=== PATIENT | male | born 1965 | race Caucasian/White ===

== ENCOUNTER 2017-02-19 07:04 | Day surgery (SDC) | payer OTHER ==
[~2017-02-19 07:04] MED LIST: Lactated Ringers 1,000 ML IV SCH; Lidocaine 1%/Sod Bicarbonate in NS 8.4% 1 ML Syringe PRN; Sodium Chloride 0.9% 10 ML Syringe FLUSH PRN
[2017-02-19] MEDS ORDERED: Lidocaine 1% 4 ML ONE (07:11)
[2017-02-19] MEDS ORDERED: Propofol 200 MG/20 ML SDV ONE ×3 (07:11→09:30)
--- NOTE | 2017-02-19 07:54 | PCM.PREANE ---
Preanesthetic Assessment - Anesthesia/Transfusion/Family Hx Anesthesia History: Prior Anesthesia Without Reaction Family History of Anesthesia Reaction: No - Review of Systems General: No Symptoms Pulmonary: No Symptoms Cardiovascular: No Symptoms Gastrointestinal: No Symptoms Neurological: No Symptoms Other: Reports: None - Physical Assessment NPO Status Date: 02/18/17 NPO Status Time: 20:30 O2 Sat by Pulse Oximetry: 94 Respiratory Rate: 17 Vital Signs: Last Vital Signs Temp 35.7 C 02/19/17 07:12 Pulse 60 02/19/17 07:12 Resp 17 02/19/17 07:12 BP 148/90 H 02/19/17 07:12 Pulse Ox 94 L 02/19/17 07:12 Height: 1.68 m Weight: 98.43 kg ASA Class: 2 Mental Status: Alert & Oriented x3 Airway Class: Mallampati = 2 Dentition: Reports: Normal Dentition Thyro-Mental Finger Breadths: 2 Mouth Opening Finger Breadths: 3 ROM/Head Extension: Full Lungs: Clear to Auscultation, Normal Respiratory Effort Cardiovascular: Regular Rate, Regular Rhythm - Lab Values: Laboratory Last Values POC Glucose 131 mg/dL (70-105) H 02/19/17 07:27 - Allergies Allergies/Adverse Reactions: Allergies Allergy/AdvReac Type Severity Reaction Status Date / Time Eggs Allergy Syncope Uncoded 02/19/17 07:40 Potatoes Allergy Syncope Uncoded 02/19/17 07:40 - Acknowledgements Anesthesia Type Planned: MAC Pt an Appropriate Candidate for the Planned Anesthesia: Yes Alternatives and Risks of Anesthesia Discussed w Pt/Guardian: Yes Pt/Guardian Understands and Agrees with Anesthesia Plan: Yes PreAnesthesia Questionnaire HEENT History: Reports: Allergic Rhinitis, Other (See Below) Other HEENT History: pterygium Cardiovascular History: Reports: High Cholesterol, Hypertension Respiratory History: Reports: None Gastrointestinal History: Reports: Other (See Below) Other Gastrointestinal History: Rectal bleeding Genitourinary History: Reports: None Musculoskeletal History: Reports: Back Pain, Chronic (Middle of back. Has been seen at [facility]. No numbness/tingling in extremities.) Other Musculoskeletal History: Carpal tunnel syndrome, rotator cuff syndrome Neurological History: Reports: None Psychiatric History: Reports: Other (See Below) Other Psychiatric History: Nightmares Endocrine/Metabolic History: Reports: Diabetes, Type II, Obesity/BMI 30+ Hematologic History: Reports: None Immunologic History: Reports: None Oncologic (Cancer) History: Reports: None Dermatologic History: Reports: None - Infectious Disease History Infectious Disease History: Reports: None - Past Surgical History Head Surgeries/Procedures: Reports: None HEENT Surgical History: Reports: None Cardiovascular Surgical History: Reports: None Respiratory Surgical History: Reports: None GI Surgical History: Reports: Colonoscopy Male Surgical History: Reports: None Endocrine Surgical History: Reports: None Neurological Surgical History: Reports: None Musculoskeletal Surgical History: Reports: None Oncologic Surgical History: Reports: None - SUBSTANCE USE Smoking Status *Q: Never Smoker Recreational Drug Use History: No - HOME MEDS Home Medications: Home Meds Atenolol 100 mg PO DAILY 02/16/17 [History] Diltiazem [Cardizem CD] 240 mg PO DAILY 02/16/17 [History] Gemfibrozil [Lopid] 600 mg PO DAILY 02/16/17 [History] - CURRENT (IN HOUSE) MEDS Current Meds: Current Medications Lactated Ringer's (Ringers, Lactated) 1,000 mls @ 125 mls/hr IV ASDIRECTED ELLIE Stop: 02/19/17 23:00 Last Admin: 02/19/17 07:27 Dose: 125 mls/hr Lidocaine/Sodium Bicarbonate (Buffered Lidocaine 1% In Ns 8.4%) 0.25 ml .XX ONETIME PRN PRN Reason: Prior to IV Start Stop: 02/19/17 18:00 Last Admin: 02/19/17 07:27 Dose: 0.25 ml Sodium Chloride (Saline Flush) 10 ml FLUSH ASDIRECTED PRN PRN Reason: Keep Vein Open Stop: 02/19/17 18:00 Discontinued Medications Lidocaine HCl (Xylocaine-Mpf 1%) Confirm Administered Dose 4 mls @ as directed .ROUTE .STK-MED ONE Stop: 02/19/17 07:12 Propofol (Diprivan 20 Ml) Confirm Administered Dose 200 mg .ROUTE .STK-MED ONE Stop: 02/19/17 07:12
[2017-02-19] MEDS ORDERED: Simethicone Drops 40 MG/0.6 ML 30 ML Bottle ONE (08:54)
--- NOTE | 2017-02-19 09:18 | PCM.OPNOTE ---
- General Post-Op/Procedure Note Date of Surgery/Procedure: 02/19/17 Operative Procedure(s): colonoscopy to cecum Findings: normal study Pre Op Diagnosis: rectal bleeding Post-Op Diagnosis: Same Anesthesia Technique: MAC Primary Surgeon: Esau Julian EBL in mLs: 0 Complications: None Condition: Good
[2017-02-19 09:25] VITALS: BP 115/79
--- NOTE | 2017-02-19 10:25 | PCM48HPAN ---
Post Anesthesia Note - EVALUATION WITHIN 48HRS OF ANESTHETIC Vital Signs in Normal Range: Yes Patient Participated in Evaluation: Yes Respiratory Function Stable: Yes Airway Patent: Yes Cardiovascular Function Stable: Yes Hydration Status Stable: Yes Pain Control Satisfactory: Yes Nausea and Vomiting Control Satisfactory: Yes Mental Status Recovered: Yes
--- NOTE | 2017-02-19 13:29 | OR ---
DATE OF OPERATION: 02/19/2017 SURGEON: Esau Julian MD PREOPERATIVE DIAGNOSIS: Rectal bleeding. POSTOPERATIVE DIAGNOSIS: Rectal bleeding. OPERATION PERFORMED: Colonoscopy to cecum. FINDINGS: Normal study. There were no angiodysplasias, neoplasias, large tumor masses, ulcerations, diverticulum, or hemorrhoids. ANESTHESIA: Procedure done under IV sedation. DESCRIPTION OF PROCEDURE: The patient was taken to the endoscopy room, placed in a supine position, connected to monitoring equipment, and given IV sedation. He was placed in left lateral position. Perianal area was inspected and was normal. Rectal exam showed good sphincter tone. A Video Olympus colonoscope was introduced into the rectum and threaded up without problem to the cecum, where the appendicular orifice and ileocecal valve were noted. Prep was excellent. [place] cleansing score grade A. The scope was slowly withdrawn showing the cecum, ascending colon, transverse colon, descending colon, sigmoid colon, and rectum. Retroflexed view was done. The patient tolerated the procedure and was sent to recovery room in a stable condition. He will be followed up as needed in the clinic. ESTIMATED BLOOD LOSS: MMODAL /[id number]
== END 2017-02-19 09:52 | disposition home or self-care (01) ==
LOC: JD.SDS 07:04
PROVIDERS: ATTEND Surgery
PROC: 0DJD8ZZ Inspection of Lower Intestinal Tract, Via Natural or Artificial Opening Endoscopic (ICD-10-PCS; principal; 2017-02-19)
DX: K62.5 Hemorrhage of anus and rectum (principal); G56.00 Carpal tunnel syndrome, unspecified upper limb; K21.9 Gastro-esophageal reflux disease without esophagitis; I10 Essential (primary) hypertension; E11.9 Type 2 diabetes mellitus without complications; E66.9 Obesity, unspecified; E78.00 Pure hypercholesterolemia, unspecified; M75.100 Unspecified rotator cuff tear or rupture of unspecified shoulder, not specified as traumatic; Z79.84 Long term (current) use of oral hypoglycemic drugs; Z79.899 Other long term (current) drug therapy; Z91.012 Allergy to eggs; Z91.018 Allergy to other foods; Z98.890 Other specified postprocedural states; Z68.42 Body mass index [BMI] 45.0-49.9, adult
CPT/HCPCS: 45378; 82962; A9270; J7120; 00810; J2704

== ENCOUNTER 2023-09-20 06:56 | Day surgery (SDC) | payer BC, OTHER ==
[2023-09-20] MEDS: Polymyxin B/Trimethoprim 10 ML Bottle EYERT SCH (07:19)
[2023-09-20] MEDS: Brimonidine 0.2% Ophth Soln 5 ML Bottle EYERT SCH (07:25)
[2023-09-20] MEDS: Phenylephrine 2.5% Ophth Soln 2 ML Bot EYERT SCH (07:30)
[2023-09-20] MEDS: Tropicamide 1% Ophth Soln 3 ML Bottle EYERT SCH (07:35)
[2023-09-20] MEDS: Tetracaine HCl/PF 0.5% 4 ML Bottle EYEBOTH SCH (08:22)
[2023-09-20] MEDS: Lidocaine 1% PF 2 ML SDV INJECT SCH (08:52)
[2023-09-20] MEDS: Cefuroxime 10 MG/ML SYRINGE EYERT SCH (09:04)
[2023-09-20] MEDS: Pilocarpine 4% Ophth Soln 15 ML Bot EYERT SCH (09:04)
[2023-09-20 09:17] VITALS: BP 146/85; PULSE 77
== END 2023-09-20 09:12 | disposition home or self-care (01) ==
LOC: JD.SDS 06:56
PROVIDERS: ATTEND Ophthalmology
DX: E11.36 Type 2 diabetes mellitus with diabetic cataract (principal); H40.013 Open angle with borderline findings, low risk, bilateral; H16.103 Unspecified superficial keratitis, bilateral; H16.223 Keratoconjunctivitis sicca, not specified as Sjogren's, bilateral; H43.813 Vitreous degeneration, bilateral; I10 Essential (primary) hypertension; Z79.84 Long term (current) use of oral hypoglycemic drugs; Z79.899 Other long term (current) drug therapy; Z91.012 Allergy to eggs; Z91.018 Allergy to other foods
CPT/HCPCS: A9270-GY; J0697; J3490; V2788-GY

== ENCOUNTER 2023-10-18 08:14 | Day surgery (SDC) | payer OTHER ==
[2023-10-18] MEDS: Polymyxin B/Trimethoprim 10 ML Bottle EYELF SCH (07:00)
[2023-10-18] MEDS: Brimonidine 0.2% Ophth Soln 5 ML Bottle EYELF SCH (07:05)
[2023-10-18] MEDS: Phenylephrine 2.5% Ophth Soln 2 ML Bot EYELF SCH (07:10)
[2023-10-18] MEDS: Tropicamide 1% Ophth Soln 3 ML Bottle EYELF SCH (07:15)
[2023-10-18] MEDS: Tetracaine HCl/PF 0.5% 4 ML Bottle EYEBOTH SCH (07:54)
[~2023-10-18 08:14] MED LIST changes: -Lactated Ringers 1,000 ML IV SCH; -Lidocaine 1%/Sod Bicarbonate in NS 8.4% 1 ML Syringe PRN; +Ondansetron 4 MG/2 ML SDV IVPUSH PRN; -Sodium Chloride 0.9% 10 ML Syringe FLUSH PRN
[2023-10-18] MEDS: Lidocaine 1% PF 2 ML SDV INJECT SCH (08:18)
[2023-10-18] MEDS: Pilocarpine 4% Ophth Soln 15 ML Bot EYELF SCH (08:29)
[2023-10-18] MEDS: Cefuroxime 10 MG/ML SYRINGE EYELF SCH (08:29)
[2023-10-18 08:46] VITALS: BP 134/88; PULSE 66
== END 2023-10-18 08:45 | disposition home or self-care (01) ==
LOC: JD.SDS 08:14
PROVIDERS: ATTEND Ophthalmology
DX: E11.36 Type 2 diabetes mellitus with diabetic cataract (principal); H25.812 Combined forms of age-related cataract, left eye; Z96.1 Presence of intraocular lens; H40.013 Open angle with borderline findings, low risk, bilateral; H16.223 Keratoconjunctivitis sicca, not specified as Sjogren's, bilateral; H43.813 Vitreous degeneration, bilateral; I10 Essential (primary) hypertension; E78.00 Pure hypercholesterolemia, unspecified; Z79.899 Other long term (current) drug therapy; Z98.890 Other specified postprocedural states
CPT/HCPCS: 66984; A9270; J0697; 00142; J3490; V2788-GY